=== PATIENT | female | born 1980 | race American Indian/Alaskan Native ===

== ENCOUNTER 2017-11-13 10:59 | Outpatient (CLI) | payer MEDICAID ==
--- NOTE | 2017-11-13 13:32 | Mammography Report ---
Screening mammogram: Indicates prior mammogram in [facility] 4 years ago at unknown facility. Routine views demonstrates a heterogeneously dense and generally symmetrically distributed fibroglandular pattern. There is a 7 mm circumscribed nodule in the superior right breast. There is an inhomogeneous somewhat elongated 2 cm area of density in the inferomedial left breast posteriorly. Otherwise, the findings are generally unremarkable bilaterally. CAD used. Impression: Bilateral asymmetries. Recommendation: Additional compression imaging of both asymmetric areas and ultrasound as needed. If the location of this patient's prior exams can be identified please notify us so that we may obtain these for comparison. BI-RADS CATEGORY: 0 = Needs additional imaging evaluation ACR BI-RADS MAMMOGRAPHIC CODES: 0 = Needs additional imaging evaluation; 1 = Negative; 2 = Benign; 3 = Probably benign; 4 = Suspicious; 5 = Malignant; 6 = Known biopsy-proven malignancy COMMENT: 1. Dense breast tissue, i.e., adenosis, fibrocystic changes, etc., may obscure an underlying neoplasm. 2. Approximately 10% of cancers are not detected with mammography. 3. A negative mammography report should not delay biopsy if a clinically suspicious mass is present.
== END 2017-11-13 11:00 | disposition home or self-care (01) ==
LOC: SPVWC 10:59
PROVIDERS: ATTEND Family Medicine
DX: Z12.31 Encounter for screening mammogram for malignant neoplasm of breast (principal)
CPT/HCPCS: 77067

== ENCOUNTER 2019-03-12 11:39 | Outpatient (CLI) | payer MEDICAID ==
--- NOTE | 2019-03-12 15:08 | Mammography Report ---
DIGITAL SCREENING MAMMOGRAM WITH CAD, 03/12/2019 INDICATION: Routine screening mammography. TECHNIQUE: Digital bilateral 2D mammography was obtained in the craniocaudal and mediolateral obliq ue projections. This examination was interpreted with the benefit of Computer-Aided Detection analysi s. COMPARISON: 11/13/2017 and 03/09/2018 FINDINGS: Breast Density: The breasts are heterogeneously dense, which may obscure small masses. Bilateral parenchymal asymmetries require additional imaging. No architectural distortion or suspicio us calcifications. IMPRESSION: Bilateral asymmetries requiring additional imaging. Recommend recall for bilateral spot c ompression views and bilateral breast ultrasound if needed. Follow up recommendation: Special View: Spot Category 0: Incomplete. Needs additional imaging evaluation and/or prior mammograms for comparison. A "normal" or negative report should not discourage follow up or biopsy of a clinically significant f inding. A written summary of these findings will be mailed to the patient. The patient will be entered into a mammography reporting system which will generate a reminder letter for the patient's next appointmen t at the appropriate interval. The [employer] recommends yearly mammograms starting at age 40 and continuing as l arlene as a woman is in good health. Breast MRI is recommended for women with an approximate 20-25% or greater lifetime risk of breast cancer, including women with a strong family history of breast or ova pauline cancer or who have been treated for Hodgkin's disease. Signer Name: Jeremy Richard MD Signed: 03/12/2019 3:04 PM Workstation Name: [id number]
== END 2019-03-12 11:40 | disposition home or self-care (01) ==
LOC: SPVWC 11:39
PROVIDERS: ATTEND Family Medicine
DX: Z12.31 Encounter for screening mammogram for malignant neoplasm of breast (principal)
CPT/HCPCS: 77067

== ENCOUNTER 2019-04-02 14:04 | Outpatient (CLI) | payer MEDICAID ==
--- NOTE | 2019-04-02 14:50 | Mammography Report ---
DIGITAL DIAGNOSTIC MAMMOGRAM WITH CAD, 04/02/2019 INDICATION: Focal asymmetry in the right inferior breast and in the left lateral breast on screening mammography. ABNORMAL MAMMOGRAM TECHNIQUE: Digital bilateral mammographic imaging was performed. Spot compression views were obtaine d. This examination was interpreted with the benefit of Computer-aided Detection analysis. COMPARISON: 03/12/2019. FINDINGS: Breast Density: The breasts are heterogeneously dense, which may obscure small masses. There is no evidence of dominant mass, suspicious calcifications or architectural distortion in eithe r breast. No persistent focal asymmetry is seen in either breast. IMPRESSION: No mammographic evidence of malignancy. Follow up recommendation: Routine yearly BI-RADS Category 1: Negative. A "normal" or negative report should not discourage follow up or biopsy of a clinically significant f inding. A written summary of these findings will be mailed to the patient. The patient will be entered into a mammography reporting system which will generate a reminder letter for the patient's next appointmen t at the appropriate interval. According to the [employer], yearly mammograms are recommended starting at age 40 and continuing as long as a woman is in good health. Breast MRI is recommended for women with an meaghan roximately 20-25% or greater lifetime risk of breast cancer, including women with a strong family his tory of breast or ovarian cancer and women who have been treated for Hodgkin's disease. Signer Name: Efrain Kamara MD Signed: 04/02/2019 2:45 PM Workstation Name: [id number]
== END 2019-04-02 14:05 | disposition home or self-care (01) ==
LOC: MAMMO 14:04
PROVIDERS: ATTEND Family Medicine
DX: R92.8 Other abnormal and inconclusive findings on diagnostic imaging of breast (principal)
CPT/HCPCS: 77066